=== PATIENT | female | born 1990 | race Caucasian/White ===

== ENCOUNTER 2017-12-20 12:10 | Emergency (ER) | payer OTHER ==
[~2017-12-20] VITALS: Ht 175.3 cm; Wt 66.2 kg
[2017-12-20 12:10] VITALS: BP 112/79
== END 2017-12-20 13:19 | disposition home or self-care (01) ==
LOC: ER 12:13
DX: Z48.01 Encounter for change or removal of surgical wound dressing (principal); G56.02 Carpal tunnel syndrome, left upper limb; F32.9 Major depressive disorder, single episode, unspecified; Z98.890 Other specified postprocedural states
CPT/HCPCS: 99282; A4606; Z7610